=== PATIENT | male | born 1980 | race Caucasian/White ===

== ENCOUNTER 2017-04-16 23:17 | Emergency (ER) | payer OTHER ==
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
[2017-04-16 23:55] LABS: ABSOLUTE LYMPHOCYTES (AUTO) 1.7 10^3/uL (0.5-4.7); ABSOLUTE MONOCYTES (AUTO) 0.7 10^3/uL (0.1-1.4); ABSOLUTE NEUT (AUTO) 7.9 10^3/uL (1.7-8.2); BASOPHILS % (AUTO) 0.5 % (0-2); EOSINOPHILS % (AUTO) 0.2 % (0-6); HEMATOCRIT 45.1 % (37.9-51.0); HEMOGLOBIN 15.3 g/dL (13.5-17.0); HGB HCT DIFFERENCE 0.8; LYMPHOCYTES % (AUTO) 16.2 % (13-45); MEAN CORPUSCULAR HEMOGLOBIN 29.9 pg (27.0-33.4); MEAN CORPUSCULAR HGB CONC 33.9 g/dL (32.0-36.0); MEAN CORPUSCULAR VOLUME 88 fl (80-97); MONOCYTES % (AUTO) 6.7 % (3-13); SEGMENTED NEUTROPHILS % (AUTO) 76.4 % (42-78); WHITE BLOOD COUNT 10.4 10^3/uL (4.0-10.5)
[2017-04-17 00:10] LABS: ALANINE AMINOTRANSFERASE 57 U/L (21-72); ALBUMIN 4.7 g/dL (3.5-5.0); ALCOHOL 121 mg/dL (NONE DETECTED); ALKALINE PHOSPHATASE 68 U/L (38-126); ANION GAP 18 (5-19); ASPARTATE AMINO TRANSFERASE 29 U/L (17-59); BILIRUBIN,DIRECT 0.3 mg/dL (0.0-0.4); BILIRUBIN,TOTAL 0.5 mg/dL (0.2-1.3); BLOOD UREA NITROGEN 12 mg/dL (7-20); CALCIUM 9.2 mg/dL (8.4-10.2); CARBON DIOXIDE 19 mmol/L (22-30); CHLORIDE 105 mmol/L (98-107); CREATININE RESULT 0.98 mg/dL (0.52-1.25); GLUCOSE 105 mg/dL (75-110); POTASSIUM 3.8 mmol/L (3.6-5.0); SODIUM 142.4 mmol/L (137-145); TOTAL PROTEIN 7.9 g/dL (6.3-8.2)
[2017-04-17 08:36] LABS: APPEARANCE,URINE CLEAR; BILIRUBIN,URINE NEGATIVE (NEGATIVE); GLUCOSE, URINE NEGATIVE (NEGATIVE); KETONES,URINE TRACE mg/dL (NEGATIVE); LEUKOCYTE ESTERASE,URINE NEGATIVE (NEGATIVE); NITRITE,URINE NEGATIVE (NEGATIVE); PROTEIN,URINE NEGATIVE (NEGATIVE); URINE SPECIFIC GRAVITY 1.011; UROBILINOGEN,URINE NEGATIVE mg/dL (<2.0)
[2017-04-17 08:48] LABS: URINE BARBITURATES SCREEN NEGATIVE; URINE METHADONE SCREEN NEGATIVE; URINE OPIATES LOW NEGATIVE; URINE PHENCYCLIDINE SCREEN NEGATIVE
--- NOTE | 2017-04-17 08:51 | EKG REPORT ---
SEVERITY:- NORMAL ECG - SINUS RHYTHM : Confirmed by: Seb Miranda 17-Apr-2017 08:51:19
--- NOTE | 2017-04-17 10:44 | ER Document Report ---
Doctor's Note Notes: 04/17/17 10:43 I have evaluated this patient this am and has no c/o at this time. Feels all of their needs are being met and physical exam is normal. Awaiting dispositon per mental health.
[2017-04-17] MEDS ORDERED: OLANZAPINE 5 MG TABLET PO SCH (15:30)
[2017-04-17] MEDS: OLANZAPINE 5 MG TABLET PO SCH (17:22)
[2017-04-17] MEDS: BENZTROPINE MESYLATE 1 MG TABLET PO SCH (23:35)
[2017-04-18] MEDS: OLANZAPINE 5 MG TABLET PO SCH ×2 (07:00→18:07)
--- NOTE | 2017-04-18 09:21 | ER Document Report ---
Doctor's Note Notes: 04/18/17 09:21 Lab work vital signs have been reviewed. At this time patient is currently stable with no overnight events requiring no intervention at this time. Patient stable for transfer or other disposition
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
[2017-04-19] MEDS: BENZTROPINE MESYLATE 1 MG TABLET PO SCH
[2017-04-19] MEDS: OLANZAPINE 5 MG TABLET PO SCH (06:05)
[2017-04-19 12:55] VITALS: BP 127/68
== END 2017-04-19 12:56 | disposition home or self-care (01) ==
LOC: ER 23:17
DX: R45.6 Violent behavior (principal); F91.1 Conduct disorder, childhood-onset type; F31.9 Bipolar disorder, unspecified; F10.99 Alcohol use, unspecified with unspecified alcohol-induced disorder; F43.10 Post-traumatic stress disorder, unspecified
CPT/HCPCS: 36415; 80053; 80307; 81001; 85025; 93005; 93010; 99284